=== PATIENT | female | born 1965 | race Caucasian/White ===

== ENCOUNTER 2025-05-26 08:06 | Inpatient (IN) | payer MEDICAID ==
[~2025-05-26] VITALS: Ht 167.6 cm; Wt 71.8 kg
--- NOTE | 2025-05-26 08:14 | ELECTROCARDIOGRAPH REPORT ---
[facility] Test Date: 2025-05-26 Test Time: 08:12:54 Pat Name: SIMIN SNYDER Department: [facility]-ER Patient ID: [facility]-[id number] Room: [place] [address] Gender: F Valet Parker: : 1965 Requested By: MALLORY JACKSON Order Number: [id number] Reading MD: Dr. Adam Kaur Measurements Intervals [place] Rate: 90 P: 56 MI: 144 QRS: 43 QRSD: 84 T: 47 QT: 353 QTc: 432 Interpretive Statements Sinus rhythm Probable left atrial enlargement Electronically Signed On 05-28-2025 18:34:[address] Adam Kaur Please click the below link to view image of tracing.
--- NOTE | 2025-05-26 08:26 | Physician Documentation ---
History of Present Illness ~ Chief Complaint: Chest Pain Stated Complaint: CP Time Seen by MD: 08:21 OK to notify your PCP?: Yes HPI 60-year-old female patient who has diabetes mellitus and current smoker chronic smoker with a history of coronary artery disease without heart attack but wants stent put in three years ago and status post lumbar stenosis surgery two years ago came to the emergency room because of chest pain for five days. She said the pain is squeezing in the left side of the chest and she could not take deep breaths because deep breaths hurts. She does have nausea but no vomiting and her breathing has been without any problems. She said exercise/activities and stress cause chest pain. She went to the [facility] Saturday and she was kept overnight and doing CT scan and also troponin and was discharged home. I guess troponin must be normal. She has laxity scan done yesterday and then her primary care doctor got cementer machine joiner for her and her cementer machine joiner is Dr. Young. She called Dr. Young and Dr. Young told her to go to this hospital and to get admitted and he was see the patient later tonight with a view to further evaluation including angioplasty. Currently she is comfortable in pain is tolerable. The patient's told me that she is allergic to Wellbutrin which cause anxiety and Bactrim cause skin rash and also she has to be premedicated for iodine contrast dyne. Medication Reconciliation Allergies: Coded Allergies: buspirone (Unverified Allergy, Unknown, 05/26/25) iodine (Unverified Allergy, Unknown, 05/26/25) sulfamethoxazole (Unverified Allergy, Unknown, 05/26/25) trimethoprim (Unverified Allergy, Unknown, 05/26/25) Scheduled Aspirin (Aspirin), 1 TAB PO DAILY, (Reported) Carvedilol* (Coreg*), 1 TAB PO Q12H, (Reported) Lisinopril (Lisinopril), 1 TAB PO DAILY, (Reported) Metformin Hcl* (Metformin ER*), 2 TAB PO Q12H, (Reported) Scheduled PRN Oxazepam (SERAX capsule), 1 CAP PO TID PRN PRN for anxiety, (Reported) Review of Systems ROS As stated above in the HPI, otherwise all systems are reviewed and negative. Physical Exam Vital Signs: Temperature: 97.9, Heart Rate: 88, Respiratory Rate: 18, BP: 135/75, Pulse Oximetry: 100, Weight: 71.100 Oxygen Flow Rate: 0 Physical Exam Reviewed vital signs and they are well within normal range. Const: Adult female not in acute cardiopulmonary distress Head: Atraumatic Eyes: Normal Conjunctiva ENT: Normal External Ears, Nose and Mouth. Moist mucous membranes Neck: Full range of motion. No meningismus Resp: Clear to auscultation bilaterally. Normal work of breathing Cardio: Regular rate and rhythm, no murmurs. Skin well perfused, heart rate is 86 beats per minute Abd: Soft, non-tender, non-distended. Normal bowel sounds. No rebound or guarding Skin: No petechiae or rashes. Warm and dry Back: No midline or flank tenderness Ext: No cyanosis, or edema Neuro: Awake and alert Psych: Normal Mood and Affect Procedures Procedures ED MD interpretation of EKG done at 08:12 hours shows sinus rhythm at a rate of 90. Normal axis. Normal intervals. No acute ischemic changes. Progress Results/Orders Results/Orders Orders - MALLORY JACKSON MD Chest,Single View (05/26/25 08:08) Monitor (05/26/25 08:08) Saline Lock (05/26/25 08:08) Oxygen (05/26/25 08:08) Hs Troponin I W Calculations (05/26/25 11:08) Page Hospitalist (05/26/25 08:44) Completed Orders - MALLORY JACKSON MD Chest,Single View (05/26/25 08:08) Cbc/Diff (05/26/25 08:08) PBNP (05/26/25 08:08) Electrocardiogram (05/26/25 08:08) Hs Troponin I W Calculations (05/26/25 08:08) Hs Troponin I W Calculations (05/26/25 10:08) CMP (05/26/25 08:08) Hgb A1c (05/26/25 08:21) Vital Signs 05/26/25 05/26/25 08:16 08:38 Temp 97.9 97.9 Pulse 88 86 Resp 18 14 B/P (MAP) 135/75 149/90 (109) Pulse Ox 100 97 O2 Flow Rate 0 0 Laboratory Tests Test 05/26/25 08:21 White Blood Count 9.2 Red Blood Count 4.75 Hemoglobin 14.4 Hematocrit 42.7 Mean Corpuscular Volume 89.9 Mean Corpuscular Hemoglobin 30.3 Mean Corpuscular Hemoglobin Concent 33.7 Red Cell Distribution Width 13.6 Platelet Count 275 Mean Platelet Volume 8.5 Neutrophils (%) (Auto) 64.7 Lymphocytes (%) (Auto) 24.4 Monocytes (%) (Auto) 8.8 Eosinophils (%) (Auto) 1.4 Basophils (%) (Auto) 0.7 Neutrophils # (Auto) 5.9 Lymphocytes # (Auto) 2.2 Monocytes # (Auto) 0.8 Eosinophils # (Auto) 0.1 Basophils # (Auto) 0.1 CBC Comment Sodium Level 136 Potassium Level 4.7 Chloride Level 99 Carbon Dioxide Level 27.6 Anion Gap 9 Blood Urea Nitrogen 15 Creatinine 0.74 Estimated GFR/1.73 m2 80 BUN/Creatinine Ratio 20.3 H Glucose Level 265 H Hemoglobin A1c 7.7 H Calcium Level 9.2 Total Bilirubin 0.3 Aspartate Amino Transf (AST/SGOT) 31 Alanine Aminotransferase (ALT/SGPT) 56 Alkaline Phosphatase 54 Troponin I High Sensitivity 4 Pro-B-Type Natriuretic Peptide < 30 Total Protein 7.7 Albumin 4.1 Globulin 3.6 Albumin/Globulin Ratio 1.1 Chemistry Comments Heart Score: Heart Score Response (Comments) Value History Moderate Suspicious 1 EKG Normal 0 Age 45-64 1 Risk Factors >3 or Hx ASHD 2 Total 4 Medical Decision Making Findings During the physical examination, the findings suggestive of acute life- threatening condition such as JVD, tracheal deviation, acidotic breathing, noisy stridorous breath sounds, pulses paradoxus, muffled heart sounds, unequal breath sounds, abdominal rigidity and rebound tenderness, focal neurological deficits, cool clammy skin, severe hypotension, severe tachycardia or bradycardia are abse nt. This patient is high-risk for coronary artery event/acute coronary syndrome as she is a diabetic chronic smoker and also history of ASHD status post stent. My interpretation of EKG shows sinus rhythm without ischemic changes at this time. Her heart score is four even without troponin. The patient will be admitted to the hospital for further evaluation and treatment. DISCLAIMER Inadvertent spelling and grammatical errors,inadvertent invoicing specialist errors,syntax errors, grammatical errors, and spelling errors are likely due to EMR/dictation software use and do not reflect on the overall quality of patient care. Note that the electronic time recorded on this note does not necessarily reflect the actual time of the patient encounter. Departure Disposition: 09 ADMITTED INPATIENT Admission Level of Care: PCU Impression: Primary Impression: Acute coronary syndrome Referrals: NO PRIMARY CARE PROVIDER (PCP) Signature Scribe Signature: None Attestation: This is my dictation MALLORY JACKSON MD May 26, 2025 08:26
[2025-05-26 08:27] LABS: BASOPHILS # (AUTO) 0.1 X10'3 (0-0.2); BASOPHILS % (AUTO) 0.7 % (0-1); EOSINOPHILS # (AUTO) 0.1 X10'3 (0-0.9); EOSINOPHILS % (AUTO) 1.4 % (0-6); HEMATOCRIT 42.7 % (35.0-45.0); HEMOGLOBIN 14.4 g/dl (12.0-16.0); LYMPHOCYTES # (AUTO) 2.2 X10'3 (1.1-4.8); LYMPHOCYTES % (AUTO) 24.4 % (21-51); MEAN CORPUSCULAR HEMOGLOBIN 30.3 PG (27.0-31.0); MEAN CORPUSCULAR HGB CONC 33.7 g/dL (33.0-36.5); MEAN CORPUSCULAR VOLUME 89.9 FL (78-98); MEAN PLATELET VOLUME 8.5 FL (7.4-10.4); MONOCYTES # (AUTO) 0.8 X10'3 (0-0.9); MONOCYTES % (AUTO) 8.8 % (2-12); NEUTROPHILS # (AUTO) 5.9 X10'3 (1.8-7.7); NEUTROPHILS % (AUTO) 64.7 % (42-75); PLATELET COUNT 275 X10'3 (140-440); RED BLOOD COUNT 4.75 X10'6 (4.20-5.60); RED CELL DISTRIBUTION WIDTH 13.6 % (11.5-14.5); WHITE BLOOD COUNT 9.2 X10'3 (4.5-11.0)
--- NOTE | 2025-05-26 08:38 | RADIOLOGY REPORT ---
EXAM: DI CHEST,SINGLE VIEW HISTORY: CP COMPARISON: None TECHNIQUE: Portable upright AP view of the chest was performed. FINDINGS: No pneumothorax, consolidative infiltrates, or pulmonary edema. The heart is not enlarged. IMPRESSION: No acute intrathoracic process.
[2025-05-26 08:43] LABS: ALANINE AMINOTRANSFERASE 56 U/L (12-78); ALBUMIN 4.1 G/DL (3.4-5.0); ALBUMIN/GLOBULIN RATIO 1.1 (1.1-1.5); ALKALINE PHOSPHATASE 54 IU/L (46-116); ANION GAP 9 (8-16); ASPARTATE AMINO TRANSFERASE 31 U/L (10-37); BILIRUBIN,TOTAL 0.3 MG/DL (0.1-1.0); BLOOD UREA NITROGEN 15 MG/DL (7-18); BUN/CREATININE RATIO 20.3 (10.0-20.0); CALCIUM 9.2 MG/DL (8.5-10.1); CHLORIDE 99 MMOL/L (99-107); CREATININE 0.74 MG/DL (0.40-0.90); GLUCOSE 265 MG/DL (70-104); POTASSIUM 4.7 MMOL/L (3.5-5.1); SODIUM 136 MMOL/L (135-145); TOTAL CARBON DIOXIDE 27.6 MMOL/L (24-32); TOTAL PROTEIN 7.7 G/DL (6.4-8.2); eCRCL 77 ML/MIN; eGFR 80 ML/MIN
[2025-05-26 08:51] LABS: PRO BRAIN NATRIURETIC PEPTIDE < 30 PG/ML (0-125)
[2025-05-26] MEDS ORDERED: METF-900 PO (08:56)
[2025-05-26] MEDS ORDERED: OXAZ10CA3 PO (08:56)
[2025-05-26] MEDS ORDERED: LISI20TA28 PO (08:56)
[2025-05-26] MEDS ORDERED: ASPI-1265 PO (08:56)
[2025-05-26] MEDS ORDERED: CARV-50 PO (08:56)
[2025-05-26] MEDS ORDERED: ondansetron/PF 4mg/2ml inj IV PRN (09:05)
[2025-05-26] MEDS ORDERED: mag hydrox/Alum hydrox/simeth 30ml oral suspension PO PRN (09:05)
[2025-05-26] MEDS ORDERED: acetaminophen 325mg tablet PO PRN (09:05)
[2025-05-26] MEDS ORDERED: magnesium Cl slow-release 64mg tablet PO PRN (09:05)
[2025-05-26] MEDS ORDERED: magnesium sulf-water 4G/100mL 100 ML IV PRN (09:05)
[2025-05-26] MEDS ORDERED: potassium Cl 20 mEq SR tablet PO PRN ×2 (09:05)
[2025-05-26] MEDS ORDERED: potassium Cl 40MEQ/1/2NS 520ml 520 ML IV PRN (09:05)
[2025-05-26] MEDS ORDERED: magnesium hydroxide 30ml (MOM) UD suspension PO PRN (09:05)
[2025-05-26] MEDS ORDERED: magnesium sulf-water 2g/50mL 50 ML IV PRN (09:05)
[2025-05-26] MEDS: mag hydrox/Alum hydrox/simeth 30ml oral suspension PO ONE (13:20)
[2025-05-26 13:55] VITALS: BP 148/62; PULSE 78; RESP 12; TEMP 97.9; O2SAT 94
[2025-05-26 13:58] LABS: D-DIMER 0.96 MG/L FEU (0-0.50)
[2025-05-26] MEDS ORDERED: DEXTROSE 15 GM of carb/4 tabs (each vial/BOTTLE has 4 tablets) PO PRN ×2 (15:55)
[2025-05-26] MEDS ORDERED: dextrose 50%-water 50ml dispensing syringe IV PRN ×2 (15:55)
[2025-05-26] MEDS ORDERED: glucagon, human recombinant 1mg kit SUBCUT PRN (15:55)
[2025-05-26 16:23] LABS: HEMOGLOBIN A1C 7.7 % (4.5-6.2)
[2025-05-26] MEDS: INSULIN LISPRO 100 UNIT/ML INSULN.PEN MULTI-DOSE SQ SCH ×2 (17:00→18:00)
[2025-05-26] MEDS: OXAZEpam 10mg capsule PO PRN (17:11)
[2025-05-26 18:00] VITALS: BP 119/77; PULSE 80; RESP 14; TEMP 97.8; O2SAT 96
--- NOTE | 2025-05-26 18:26 | HISTORY AND PHYSICAL-Residence ---
History & Physical Providers to CC Resident Creating Document: MAMTA JAEGERJOSÉ MIGUELESTEBAN HAYES CC: LISA DAS MD ~ History of Present Illness Reason for Admit\Complaint: Chest pain History of Present Illness Patient is a 60-year-old female with history of hypertension, CAD, type 2 diabetes, spinal spondylosis, anxiety, asthma/COPD and fatty liver disease who came to the ED due to chest pain. Patient reports that for the past 5 days she has been experiencing intermittent chest pain, described as substernal, squeezing/chest heaviness/tightness, 7 to 8/10 in intensity, happen in 6-12 times a day, lasting 15 minutes to 1 hour at a time, worsens with inspiration and does not improve with resting. In addition, she reports some lightheadedness, dizziness, nausea and confusion that happens along with the chest pain. She denies any fevers or chills. She does report that she has been anxious and fatigued. She also reports that for the past year or so she has been experiencing intermittent episodes of palpitations which last 10-20 seconds at a time. [facility] in [facility] in [place], and she underwent Lexiscan which was negative. However, her primary care provider spoke with Dr. Young, who recommended her to come to the ED for further evaluation. Allergies: Coded Allergies: buspirone (Unverified Allergy, Unknown, 05/26/25) iodine (Unverified Allergy, Unknown, 05/26/25) sulfamethoxazole (Unverified Allergy, Unknown, 05/26/25) trimethoprim (Unverified Allergy, Unknown, 05/26/25) Home Medications Home Medications Active Reported SERAX capsule (Oxazepam) 10 Mg Capsule 1 Cap PO TID PRN PRN 30 Days Aspirin 81 Mg Tab.chew 1 Tab PO DAILY 30 Days Lisinopril 20 Mg Tablet 1 Tab PO DAILY 30 Days Coreg* (Carvedilol) 12.5 Mg Tablet 1 Tab PO Q12H 30 Days Metformin ER* (Metformin HCl) 500 Mg Tab.sr.24h 2 Tab PO Q12H 30 Days Past Medical History Past Medical History Hypertension, CAD s/p stent to mid RCA, type 2 diabetes, spinal spondylosis, anxiety, asthma/COPD and fatty liver disease Past Surgical History Surgical History Comment Spine Orthopedic surgery 2 years ago Appendectomy 50 years ago in 1986 Family History Family History: FH: cardiovascular disease FATHER MOTHER FH: diabetes mellitus FATHER MOTHER FH: lung cancer FAMILY/OTHER High cholesterol FATHER MOTHER Past Social History Social History Comment PCP: Settlement Technician: Dr. Murrieta. However, getting established with Dr. Bowser Smoking: Cigarettes (Normally she smokes 1 pack a day. For the past 4 weeks she has been smoking 2 packs a day. 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 Lungs clear to auscultation bilaterally. Chest: Normal expansion Cardiovascular: Regular Rate and rhythm, normal S1 and S2 without murmur, rub or gallop Abdomen: Soft and nontender, no organomegaly, no guarding and rigidity, bowel sounds present Neuro: No focal weakness in the upper and lower limb muscles, power of the muscles 5/5 bilateral upper and lower extremities, normal reflexes bilaterally. Cranial nerves intact Extremities: No cyanosis,clubbing or edema Skin: Warm and Dry. No lesions Psych: Normal affect, cooperative with care Diagnostic Data Last Recorded Lab Results: 05/26/25 0821 05/26/25 0821 Diagnostic Data: Laboratory Tests Test 05/26/25 09:21 D-Dimer 0.96 MG/L FEU (0-0.50) H D-Dimer Comment Advance Care Planning Advanced Care plannin - 30 Minutes Additional Plan Patient is a 60-year-old female with history of hypertension, CAD, type 2 diabetes, spinal spondylosis, anxiety, asthma/COPD and fatty liver disease who came to the ED due to chest pain. Referred by Dr. Young for further evaluation and management Chest pain, possible unstable angina CAD s/p stent to mid RCA 2 years ago Patient with 5 days of intermittent chest pain, lightheadedness and palpitations Troponins and EKG are unremarkable Patient underwent Lexiscan in [place] which was negative for reversible ischemia Discussed in detail with Dr. Young, plan: - give single dose of Maalox - start Protonix 40 mg daily - start on full liquid diet, then NPO after midnight - cardiac catheterization tomorrow - Continue aspirin Hypertension Continue lisinopril, carvedilol Type 2 diabetes A1c ordered Started on Lantus 10 units, lispro 3 units, low-dose supplemental Asthma/COPD, not in exacerbation Continue home inhalers. Pending med rec Anxiety Continue home oxazepam p.r.n. Code Status: Full code DVT prophylaxis: Heparin GI prophylaxis: Protonix Nutrition: Full liquids, NPO after midnight PT: Ordered Prognosis: Guarded Disposition: Continue care in PCU. Cardiac catheterization tomorrow by Dr. Mague Hughes MD Internal Medicine Resident PGY-1 Date of Service: May 26, 2025 Billing Provider: LISA DAS MD, LEONARDO LUIS May 26, 2025 18:26
[2025-05-26] MEDS: docusate sod 100mg capsule PO SCH (20:00)
[2025-05-26] MEDS: heparin, porcine 5000 units/ml vial SQ SCH (20:00)
[2025-05-26] MEDS: K and/or MAG REPLACEMENT MC SCH (20:00)
[2025-05-26] MEDS: insulin glargine (Lantus) pen - multi-dose SQ SCH (21:00)
[2025-05-26] MEDS: pantoprazole 40mg Tablet.DR PO SCH (21:55)
[2025-05-26] MEDS: carVEDilol 12.5mg tablet PO SCH (21:55)
[2025-05-26 22:00] VITALS: BP 109/62; PULSE 69; RESP 18; TEMP 97.8; O2SAT 95
[2025-05-27 02:00] VITALS: BP 110/63; PULSE 69; RESP 16; TEMP 97.7; O2SAT 97
--- NOTE | 2025-05-27 05:50 | CONSULTATION ---
DATE OF CONSULTATION: 05/26/2025 DICTATING PHYSICIAN: AURORA ALCANTARA DO REFERRING PHYSICIAN: Medicine Resident Service. FAMILY PHYSICIAN: Dr. Marni Kam. CHIEF COMPLAINT: Chest pain. CLINICAL HISTORY: This 60-year-old woman was admitted earlier today for ongoing chest pain. She has been recently hospitalized at [facility] in [place] for similar discomfort. While there, her troponin levels were extraordinarily low and she had a pharmacologic stress test, which was reported as being entirely normal. However, her chest discomfort has continued to occur including episodes at rest. For that reason, she presented to this emergency room today and was admitted for suspected unstable angina. PAST MEDICAL HISTORY: Her pertinent past history is remarkable for a stent to the right coronary in 11/2023. Other medical problems include a history of diabetes since age 31. She has reactive airways disease, but only intermittently uses a bronchodilator. She has also been described by some as having COPD. Her chest discomfort is described as being similar to that experience before her coronary intervention. ALLERGIES: SHE HAS ALLERGIES TO BUSPAR, BACTRIM, AND GADOLINIUM. PAST SURGICAL HISTORY: Previous surgeries include an appendectomy, one section, and low back surgery for spondylosis. SOCIAL HISTORY: She smoked for 30 years, averaging 1 pack per day, although she has been smoking 2 packs per day in the last several weeks. She denies any alcoholic consumption. FAMILY HISTORY: Mother at age 72. She had bilateral carotid disease, but cause of is not certain. Father in his early 50s from COPD. Multiple uncles and aunts have cardiovascular problems. REVIEW OF SYSTEMS: Otherwise unremarkable. MEDICATIONS: Her medicines at the time of admission included Coreg 12.5 mg p.o. twice daily, lisinopril 10 mg daily, metformin 1000 mg daily, aspirin 81 mg daily and Serax 10 mg t.i.d., Serax is taken for anxiety. PHYSICAL EXAMINATION: VITAL SIGNS: Most recent vital signs were pulse of 80, blood pressure 148/62, oximetry 94% on room air, temperature 97.9. GENERAL: The patient is an alert, cooperative woman who gives a very cogent history. HEENT: Pupils are reactive to light. Extraocular muscles intact. NECK: No JVD, no carotid bruits. CHEST: On examination of the chest, both lung samaniego are clear. CARDIAC: Apical impulse not displaced. First and second heart sounds normal. No murmurs, gallops, or rubs. ABDOMEN: Nontender. No organomegaly and no masses. EXTREMITIES: No edema. Foot pulses not readily palpable. DIAGNOSTIC DATA: Her ECG demonstrates sinus rhythm and left atrial abnormality. There are nondiagnostic small Q-waves in leads 2, 3 and AVF, as well as in V5 and V6. ASSESSMENT AND RECOMMENDATIONS: Recurring chest pain of uncertain etiology. It `should be noted that 2 troponins drawn during this admission, in spite of being high sensitivity, were only 4. Given the fact that her troponins are consistently negative in [place] and that her pharmacologic stress test was entirely normal, it is quite probable that she does not have an acute coronary syndrome. The only thing militating somewhat in favor of the diagnosis is the past history of coronary stenting. The patient has given additional history to say that she occasionally awakens at night with retrosternal chest discomfort. She does have heartburn from time to time. Therefore, a distinct possibility for her symptoms is gastroesophageal reflux. Currently, she is not feeling much in the way of any chest pain. Therefore, it seems reasonable to place this patient on a proton pump inhibitor and let her ambulate liberally whether or not she needs a catheterization before discharge remains to be determined, but once again I do not think this patient has experienced an acute coronary syndrome. AURORA ALCANTARA DO TID: [id number] RECEIPT: [id number] RUBI cc: Marni Kam MD [facility]
[2025-05-27 06:00] VITALS: BP 107/65; PULSE 70; RESP 8; TEMP 97.3; O2SAT 98
[2025-05-27 06:06] LABS: BASOPHILS % (AUTO) 0.6 % (0-1); EOSINOPHILS # (AUTO) 0.2 X10'3 (0-0.9); EOSINOPHILS % (AUTO) 2.3 % (0-6); HEMOGLOBIN 14.5 g/dl (12.0-16.0); LYMPHOCYTES # (AUTO) 2.6 X10'3 (1.1-4.8); LYMPHOCYTES % (AUTO) 30.1 % (21-51); MEAN CORPUSCULAR HEMOGLOBIN 30.4 PG (27.0-31.0); MEAN CORPUSCULAR HGB CONC 33.8 g/dL (33.0-36.5); MEAN CORPUSCULAR VOLUME 89.7 FL (78-98); MEAN PLATELET VOLUME 8.6 FL (7.4-10.4); MONOCYTES % (AUTO) 11.5 % (2-12); NEUTROPHILS # (AUTO) 4.7 X10'3 (1.8-7.7); NEUTROPHILS % (AUTO) 55.5 % (42-75); PLATELET COUNT 271 X10'3 (140-440); RED BLOOD COUNT 4.79 X10'6 (4.20-5.60); RED CELL DISTRIBUTION WIDTH 13.4 % (11.5-14.5); WHITE BLOOD COUNT 8.5 X10'3 (4.5-11.0)
[2025-05-27 06:17] LABS: ALANINE AMINOTRANSFERASE 55 U/L (12-78); ALBUMIN 3.9 G/DL (3.4-5.0); ALBUMIN/GLOBULIN RATIO 1.1 (1.1-1.5); ALKALINE PHOSPHATASE 53 IU/L (46-116); ANION GAP 9 (8-16); ASPARTATE AMINO TRANSFERASE 34 U/L (10-37); BILIRUBIN,TOTAL 0.5 MG/DL (0.1-1.0); BLOOD UREA NITROGEN 10 MG/DL (7-18); BUN/CREATININE RATIO 14.9 (10.0-20.0); CALCIUM 9.3 MG/DL (8.5-10.1); CHLORIDE 103 MMOL/L (99-107); CREATININE 0.67 MG/DL (0.40-0.90); GLUCOSE 177 MG/DL (70-104); MAGNESIUM 2.3 MG/DL (1.5-2.4); POTASSIUM 4.4 MMOL/L (3.5-5.1); SODIUM 139 MMOL/L (135-145); TOTAL CARBON DIOXIDE 27.4 MMOL/L (24-32); TOTAL PROTEIN 7.5 G/DL (6.4-8.2); eCRCL 85 ML/MIN; eGFR 90 ML/MIN
[2025-05-27] MEDS: pantoprazole 40mg Tablet.DR PO SCH ×2 (07:30→08:32)
[2025-05-27] MEDS: lisinopril 20mg tablet PO SCH (08:00)
[2025-05-27] MEDS: aspirin 81mg tab.chew PO SCH (08:30)
[2025-05-27 09:02] LABS: HDL CHOLESTEROL 57 MG/DL (35-60); LDL CHOLESTEROL 139 MG/DL (50-100); THYROID STIMULATING HORMONE 3.66 ulU/ml (0.34-4.50); TRIGLYCERIDES 162 MG/DL (20-135)
[2025-05-27 09:06] LABS: CHOL/HDL RATIO 4.2 (0.00-4.99); CHOLESTEROL 238 MG/DL (0-200)
[2025-05-27] MEDS ORDERED: PANT40TA54 PO (10:35)
[2025-05-27 11:00] VITALS: BP 110/58; PULSE 66; RESP 14; TEMP 97.7; O2SAT 96
--- NOTE | 2025-05-27 16:59 | DISCHARGE SUMMARY-Residence ---
Discharge Summary Providers to CC Resident Creating Document: OLEARY ELLENESTEBANDON HAYES CC: LISA DAS MD ~ Discharge Summary Admission Diagnosis: Chest pain, rule out ACS Hospital Course DATE OF ADMISSION: 05/26/2025 DATE OF DISCHARGE: 05/27/2025 Discharge Diagnosis\Comment: Recurrent chest pain, ACS unlikely Possible GERD History of CAD s/p stent to mid RCA 2 years ago Hypertension Type 2 diabetes Asthma/COPD, not in exacerbation Anxiety Operations\Procedures: None Consultants: Dr Young Complications: None Condition on DC: Stable New Medications: Pantoprazole Sodium (Pantoprazole Sodium) 40 Mg Tablet.dr 40 MG PO BKF for 30 Days, #30 TAB.SR Continued Medications: Aspirin (Aspirin) 81 Mg Tab.chew 1 TAB PO DAILY for 30 Days, #30 TAB Carvedilol* (Coreg*) 12.5 Mg Tablet 1 TAB PO Q12H for 30 Days, #60 TAB Lisinopril (Lisinopril) 20 Mg Tablet 1 TAB PO DAILY for 30 Days, #30 TAB Metformin Hcl* (Metformin ER*) 500 Mg Tab.sr.24h 2 TAB PO Q12H for 30 Days, #120 TAB Oxazepam (SERAX capsule) 10 Mg Capsule 1 CAP PO TID PRN PRN for anxiety for 30 Days, #90 CAP 0 Refills Discharge Summary: Patient was admitted with the following HPI: Patient is a 60-year-old female with history of hypertension, CAD, type 2 diabetes, spinal spondylosis, anxiety, asthma/COPD and fatty liver disease who came to the ED due to chest pain. Patient reports that for the past 5 days she has been experiencing intermittent chest pain, described as substernal, squeezing/chest heaviness/tightness, 7 to 8/10 in intensity, happen in 6-12 times a day, lasting 15 minutes to 1 hour at a time, worsens with inspiration and does not improve with resting. In addition, she reports some lighthead edness, dizziness, nausea and confusion that happens along with the chest pain. She denies any fevers or chills. She does report that she has been anxious and fatigued. She also reports that for the past year or so she has been experiencing intermittent episodes of palpitations which last 10-20 seconds at a time. Patient was seen in [facility] in [place], and she underwent Lexiscan which was negative. However, her primary care provider spoke with Dr. Young, who recommended her to come to the ED for further evaluation. Hospital course: Patient was evaluated by Dr. Young, who in view of negative troponins and negatives stress test at prior facility, believed that acute coronary syndrome was less likely. He had a discussion with the patient and decided not to move forward with cardiac catheterization at this time. Patient was given a single dose of Maalox and was started on pantoprazole. She remained chest pain-free and hemodynamically stable during hospital course. In view of faster than expected recovery, patient will be discharged home today. She will follow up with Dr. Young on an outpatient basis. Laboratory Tests Test 05/26/25 08:21 05/26/25 09:21 05/26/25 10:05 05/27/25 05:37 White Blood Count 9.2 X10'3 8.5 X10'3 Red Blood Count 4.75 X10'6 4.79 X10'6 Hemoglobin 14.4 g/dl 14.5 g/dl Hematocrit 42.7 % 43.0 % Mean Corpuscular Volume 89.9 FL 89.7 FL Mean Corpuscular Hemoglobin 30.3 PG 30.4 PG Mean Corpuscular Hemoglobin Concent 33.7 g/dL 33.8 g/dL Red Cell Distribution Width 13.6 % 13.4 % Platelet Count 275 X10'3 271 X10'3 Mean Platelet Volume 8.5 FL 8.6 FL Neutrophils (%) (Auto) 64.7 % 55.5 % Lymphocytes (%) (Auto) 24.4 % 30.1 % Monocytes (%) (Auto) 8.8 % 11.5 % Eosinophils (%) (Auto) 1.4 % 2.3 % Basophils (%) (Auto) 0.7 % 0.6 % Neutrophils # (Auto) 5.9 X10'3 4.7 X10'3 Lymphocytes # (Auto) 2.2 X10'3 2.6 X10'3 Monocytes # (Auto) 0.8 X10'3 1.0 X10'3 Eosinophils # (Auto) 0.1 X10'3 0.2 X10'3 Basophils # (Auto) 0.1 X10'3 0.0 X10'3 CBC Comment Sodium Level 136 MMOL/L 139 MMOL/L Potassium Level 4.7 MMOL/L 4.4 MMOL/L Chloride Level 99 MMOL/L 103 MMOL/L Carbon Dioxide Level 27.6 MMOL/L 27.4 MMOL/L Anion Gap 9 9 Blood Urea Nitrogen 15 MG/DL 10 MG/DL Creatinine 0.74 MG/DL 0.67 MG/DL Estimated GFR/1.73 m2 80 ML/MIN 90 ML/MIN BUN/Creatinine Ratio 20.3 14.9 Glucose Level 265 MG/DL 177 MG/DL Hemoglobin A1c 7.7 % Calcium Level 9.2 MG/DL 9.3 MG/DL Total Bilirubin 0.3 MG/DL 0.5 MG/DL Aspartate Amino Transf (AST/SGOT) 31 U/L 34 U/L Alanine Aminotransferase (ALT/SGPT) 56 U/L 55 U/L Alkaline Phosphatase 54 IU/L 53 IU/L Troponin I High Sensitivity 4 ng/L 4 ng/L Pro-B-Type Natriuretic Peptide < 30 PG/ML Total Protein 7.7 G/DL 7.5 G/DL Albumin 4.1 G/DL 3.9 G/DL Globulin 3.6 G/DL 3.6 G/DL Albumin/Globulin Ratio 1.1 1.1 Chemistry Comments D-Dimer 0.96 MG/L FEU D-Dimer Comment Troponin I High Sens Percent Delta 0 % Troponin I Hi Sens Absolute Change 0 ng/L Magnesium Level 2.3 MG/DL Triglycerides Level 162 MG/DL Cholesterol Level 238 MG/DL LDL Cholesterol 139 MG/DL HDL Cholesterol 57 MG/DL Cholesterol/HDL Ratio 4.2 Thyroid Stimulating Hormone (TSH) 3.66 ulU/ml Imaging: Chest x-ray: No acute intrathoracic process. Lexiscan (from [place]): No evidence of reversible ischemia Discharge physical exam: General: awake, alert oriented to place, time, and person HEENT: No pallor present, no icterus, moist mucous membranes Neck: No masses and tenderness Resp: Unlabored. Lungs clear to auscultation bilaterally. Chest: Normal expansion Cardiovascular: Regular Rate and rhythm, normal S1 and S2 without murmur, rub or gallop Abdomen: Soft and nontender, no organomegaly, no guarding and rigidity, bowel sounds present Neuro: No focal weakness in the upper and lower limb muscles, power of the muscles 5/5 bilateral upper and lower extremities, normal reflexes bilaterally. Cranial nerves intact Extremities: No cyanosis,clubbing or edema Skin: Warm and Dry. No lesions Psych: Normal affect, cooperative with care Disposition: Patient will be discharged with the following recommendations: We started pantoprazole for you which will help with your stomach Please follow up with Dr Young and your PCP within one week Resume all your medications Return to the ED if any concerning symptoms *Problems/Diagnosis: (1) GERD (gastroesophageal reflux disease) (2) Chest pain Total Time Spent on D/C: > 30 Minutes Date of Service: May 27, 2025 Billing Provider: LISA DAS MD, LEONARDO LUIS May 27, 2025 16:45
== END 2025-05-27 12:12 | disposition home or self-care (01) | DRG 198 ==
LOC: ER 08:07 → ED HOLD 09:07 → PCU 3S 13:50
PROVIDERS: ADMIT Family Medicine; ATTEND Family Medicine
DX: R07.89 Other chest pain (principal); I25.10 Atherosclerotic heart disease of native coronary artery without angina pectoris; E11.9 Type 2 diabetes mellitus without complications; F17.210 Nicotine dependence, cigarettes, uncomplicated; K21.9 Gastro-esophageal reflux disease without esophagitis; J44.9 Chronic obstructive pulmonary disease, unspecified; I10 Essential (primary) hypertension; F41.9 Anxiety disorder, unspecified; Z88.8 Allergy status to other drugs, medicaments and biological substances; Z88.2 Allergy status to sulfonamides; Z79.82 Long term (current) use of aspirin; Z79.84 Long term (current) use of oral hypoglycemic drugs; Z82.5 Family history of asthma and other chronic lower respiratory diseases; Z79.899 Other long term (current) drug therapy
CPT/HCPCS: 36415; 71045; 80053; 80061; 83036; 83735; 83880; 84443; 84484; 85025; 85379; 87081; 93005; 99285; G0378; J1815